=== PATIENT | male | born 1980 | race Caucasian/White ===

== ENCOUNTER 2018-09-08 12:39 | Emergency (ER) | payer MEDICAID ==
[~2018-09-08] VITALS: Ht 170.2 cm; Wt 90.7 kg
[2018-09-08 12:59] VITALS: BP 139/75
[2018-09-08] MEDS ORDERED: IBUPROFEN 800 MG TAB PO ONE (13:10)
[2018-09-08] MEDS ORDERED: MORPHINE SULFATE 4 MG/ML SYR IM ONE (13:40)
[2018-09-08] MEDS ORDERED: MORPHINE SULFATE 4 MG/ML SYR IVP ONE (13:55)
[2018-09-08 14:36] VITALS: BP 139/75
== END 2018-09-08 14:30 | disposition home or self-care (01) ==
LOC: MED 12:39
DX: S82.832A Other fracture of upper and lower end of left fibula, initial encounter for closed fracture (principal); S82.392A Other fracture of lower end of left tibia, initial encounter for closed fracture; X58.XXXA Exposure to other specified factors, initial encounter; Y93.72 Activity, wrestling; Y92.89 Other specified places as the place of occurrence of the external cause; Y99.8 Other external cause status
CPT/HCPCS: 29515; 73610; 96374; 99283; J2270

== ENCOUNTER 2018-09-21 08:27 | Emergency (ER) | payer MEDICAID ==
[~2018-09-21] VITALS: Ht 167.6 cm; Wt 90.7 kg
[2018-09-21 08:32] VITALS: BP 135/93
[2018-09-21 09:05] VITALS: BP 135/93
== END 2018-09-21 09:05 | disposition home or self-care (01) ==
LOC: MED 08:27
DX: S82.892D Other fracture of left lower leg, subsequent encounter for closed fracture with routine healing (principal); X58.XXXD Exposure to other specified factors, subsequent encounter
CPT/HCPCS: 99281

== ENCOUNTER 2018-10-14 12:04 | Emergency (ER) | payer MEDICAID, OTHER ==
[~2018-10-14] VITALS: Ht 167.6 cm; Wt 96.8 kg
[2018-10-14 12:15] VITALS: BP 136/98
[2018-10-14 13:08] VITALS: BP 138/78
== END 2018-10-14 13:25 | disposition home or self-care (01) ==
LOC: MED 12:04
DX: S82.892D Other fracture of left lower leg, subsequent encounter for closed fracture with routine healing (principal); X58.XXXD Exposure to other specified factors, subsequent encounter
CPT/HCPCS: 29515; 99283